=== PATIENT | male | born 1950 | race Caucasian/White ===

== ENCOUNTER 2024-01-05 20:40 | Inpatient (IN) | payer MEDICARE, BC ==
[~2024-01-05] VITALS: Ht 182.9 cm; Wt 105.7 kg
[2024-01-05] MEDS: LACOSAMIDE 100 MG/10 ML UDC PO STA (21:05)
[2024-01-05] MEDS ORDERED: LACOSAMIDE 50 MG TABLET ONE (21:06)
[2024-01-05] MEDS ORDERED: INSU200I4 SQ (21:19)
[2024-01-05] MEDS ORDERED: METH-806 PO (21:19)
[2024-01-05] MEDS ORDERED: CLOP75TA33 PO (21:19)
[2024-01-05] MEDS ORDERED: AMLO10TA59 PO (21:19)
[2024-01-05] MEDS ORDERED: ASPI-495 PO (21:19)
[2024-01-05] MEDS ORDERED: EMPA10TA PO (21:19)
[2024-01-05] MEDS ORDERED: [UNRECOGNIZED DRUG - CODE] PO (21:19)
[2024-01-05] MEDS ORDERED: PREG300C PO (21:19)
[2024-01-05] MEDS ORDERED: CLON1TAB12 PO (21:19)
[2024-01-05] MEDS ORDERED: FENO48TA6 PO (21:19)
[2024-01-05] MEDS ORDERED: ATOR40TA PO (21:19)
[2024-01-05] MEDS ORDERED: METO-356 PO (21:19)
[2024-01-05] MEDS ORDERED: SEMA0.25 SQ (21:19)
[2024-01-05] MEDS ORDERED: FOLI1TAB94 PO (21:19)
[2024-01-05] MEDS ORDERED: INSU100V (21:19)
[2024-01-05] MEDS ORDERED: DONE10TA44 PO (21:19)
[2024-01-05] MEDS ORDERED: LACO100T2 PO (21:19)
[2024-01-05 21:20] LABS: BASOPHILS # (AUTO) 0.1 K/UL (0.0-0.2); BASOPHILS % (AUTO) 0.6 % (0.0-2.0); EOSINOPHILS # (AUTO) 0.1 K/uL (0.0-0.7); EOSINOPHILS % (AUTO) 0.9 % (0.0-7.0); HEMATOCRIT 41.6 % (36.7-47.1); HEMOGLOBIN 13.8 g/dL (12.5-16.3); LYMPHOCYTES # (AUTO) 2.2 K/uL (0.8-4.8); LYMPHOCYTES % (AUTO) 25.9 % (20.5-51.5); MEAN CORPUSCULAR HGB CONC 33 g/dL (32.5-36.3); MEAN CORPUSCULAR VOLUME 90.4 fL (73.0-96.2); MONOCYTES # (AUTO) 0.7 K/uL (0.1-1.30); MONOCYTES % (AUTO) 8.3 % (0.0-11.0); NEUTROPHILS # (AUTO) 5.6 K/uL (1.8-8.9); NEUTROPHILS % (AUTO) 64.3 % (38.5-71.5); PLATELET COUNT (AUTO) 134 K/uL (152-348); RED CELL DISTRIBUTION WIDTH 14.4 % (12.1-16.2); WHITE BLOOD COUNT (AUTO) 8.6 K/uL (3.6-10.2)
[2024-01-05 21:21] LABS: DIFFERENTIAL COMMENT 1
[2024-01-05 21:22] LABS: *BILIRUBIN,URIN NEGATIVE (NEGATIVE); *BLOOD, URINE NEGATIVE (NEGATIVE); *CLARITY,URINE CLEAR (CLEAR); *COLOR,URINE YELLOW (YELLOW); *KETONES,URINE NEGATIVE (NEGATIVE); *PROTEIN,URINE NEGATIVE (NEGATIVE); *UROBILINOGEN,URINE 0.2 E.U./dl (NORMAL); LEUKOCYTE ESTERASE ,URINE NEGATIVE (NEGATIVE); NITRITE, URINE NEGATIVE (NEGATIVE); PH,URINE 5.5 (5.0-8.0); UGLUCOSE 3+ (NEGATIVE)
[2024-01-05 21:24] LABS: ALANINE AMINOTRANSFERASE 28 U/L (16-63); ALBUMIN 3.9 g/dL (3.4-5.0); ALKALINE PHOSPHATASE 104 U/L (50-136); ASPARTATE AMINOTRANSFERASE 23 U/L (15-37); BILIRUBIN,DIRECT 0.2 mg/dL (0.0-0.2); BILIRUBIN,TOTAL 0.7 mg/dL (0.2-1.0); CALCIUM 10.2 mg/dL (8.5-10.1); CARBON DIOXIDE 30 mmol/L (21-32); CHLORIDE 102 mmol/L (98-107); CREATININE 1.9 mg/dL (0.6-1.3); POTASSIUM 4.5 mmol/L (3.5-5.1); SODIUM SERUM 143 mmol/L (136-145); TOTAL PROTEIN, SERUM 8.1 g/dL (6.4-8.2); UREA NITROGEN, BLOOD 38 mg/dL (7-18)
[2024-01-05 21:27] LABS: ACETAMINOPHEN < 2.0 ug/mL (10-30)
[2024-01-05 21:31] LABS: GLUCOSE 154 mg/dL (74-106)
[2024-01-05 21:40] LABS: BACTERIA,URINE NONE SEEN /HPF (NONE SEEN); RBC,URINE NONE SEEN /HPF (0-3); SQUAMOUS EPITHELIAL CELL,UR FEW /HPF (NONE SEEN); WBC,URINE 0-3 /HPF (0-3)
[2024-01-05 21:42] LABS: ETHANOL < 3 MG/DL (0-10)
[2024-01-05 21:46] LABS: *AMPHETAMINE, URINE NEGATIVE (NEGATIVE); *BARBITURATE, URINE NEGATIVE (NEGATIVE); *BENZODIAZEPINE, URINE NEGATIVE (NEGATIVE); *CANNABINOID, URINE NEGATIVE (NEGATIVE); *COCCAINE, URINE NEGATIVE (NEGATIVE); *OPIATE, URINE POSITIVE (NEGATIVE); *PHENCYCLIDINE SCREEN,URINE NEGATIVE (NEGATIVE); FENTANYL, URINE NEGATIVE (NEGATIVE)
[2024-01-06] MEDS ORDERED: MAG HYDROX/AL HYDROX/SIMETH 30 ML LIQUID UDC PO PRN
[2024-01-06] MEDS ORDERED: LORAZEPAM 1 MG TABLET PO PRN
[2024-01-06] MEDS ORDERED: TEMAZEPAM 7.5 MG CAPSULE PO PRN ×2
[2024-01-06 00:13] VITALS: BP 164/69; TEMP 98.8; O2SAT 96
[2024-01-06 08:41] VITALS: BP 117/50; TEMP 98; O2SAT 96
[2024-01-06] MEDS ORDERED: INSU100I33 SQ (09:21)
[2024-01-06] MEDS: FLUOXETINE HCL 20 MG CAPSULE PO SCH (10:50)
[2024-01-06] MEDS ORDERED: DEXTROSE 50% 50 ML DISP.SYRIN IV PRN (12:00)
[2024-01-06] MEDS: LACOSAMIDE 50 MG TABLET PO SCH (13:12)
[2024-01-06] MEDS: CLOPIDOGREL 75 MG TABLET PO SCH (13:12)
[2024-01-06] MEDS: ASPIRIN EC 81 MG TABLET.DR PO SCH (13:12)
[2024-01-06] MEDS: DIVALPROEX 125 MG TABLET.DR PO SCH (13:12)
[2024-01-06 15:47] VITALS: BP 136/92; TEMP 98; O2SAT 96
[2024-01-06] MEDS: FENOFIBRATE NANOCRYSTALLIZED 48 MG TABLET PO SCH (16:47)
[2024-01-06] MEDS: BLOOD SUGAR DIAGNOSTIC 1 EACH STRIP VI SCH (16:55)
[2024-01-06] MEDS: INSULIN REGULAR, HUMAN 1000 UNIT/10 ML VIAL SQ PRN (16:58)
[2024-01-06 20:00] VITALS: BP 151/69; TEMP 98.5; O2SAT 94
[2024-01-06] MEDS: ATORVASTATIN 40 MG TABLET PO SCH (21:02)
[2024-01-07] MEDS: LEVOTHYROXINE SODIUM 150 MCG TABLET PO SCH (06:35)
[2024-01-07] MEDS: LORAZEPAM 1 MG TABLET PO PRN (06:35)
[2024-01-07 07:42] LABS: BASOPHILS % (AUTO) 0.8 % (0.0-2.0); EOSINOPHILS # (AUTO) 0.1 K/uL (0.0-0.7); EOSINOPHILS % (AUTO) 2.2 % (0.0-7.0); HEMATOCRIT 38.8 % (36.7-47.1); LYMPHOCYTES # (AUTO) 1.2 K/uL (0.8-4.8); LYMPHOCYTES % (AUTO) 20.2 % (20.5-51.5); MEAN CORPUSCULAR HEMOGLOBIN 30.2 uug (23.8-33.4); MEAN CORPUSCULAR HGB CONC 33 g/dL (32.5-36.3); MEAN CORPUSCULAR VOLUME 90.5 fL (73.0-96.2); MONOCYTES # (AUTO) 0.6 K/uL (0.1-1.30); MONOCYTES % (AUTO) 9.8 % (0.0-11.0); NEUTROPHILS # (AUTO) 3.9 K/uL (1.8-8.9); PLATELET COUNT (AUTO) 113 K/uL (152-348); RED BLOOD CELL COUNT(AUTO) 4.29 MIL/uL (4.06-5.63); RED CELL DISTRIBUTION WIDTH 14.9 % (12.1-16.2); WHITE BLOOD COUNT (AUTO) 5.8 K/uL (3.6-10.2)
[2024-01-07 07:56] LABS: DIFFERENTIAL COMMENT 1
[2024-01-07 07:57] VITALS: BP 116/56; TEMP 98; O2SAT 98
[2024-01-07 07:57] LABS: ALANINE AMINOTRANSFERASE 20 U/L (16-63); ALBUMIN 3.6 g/dL (3.4-5.0); ALKALINE PHOSPHATASE 101 U/L (50-136); ASPARTATE AMINOTRANSFERASE 18 U/L (15-37); BILIRUBIN,TOTAL 0.7 mg/dL (0.2-1.0); CARBON DIOXIDE 28 mmol/L (21-32); CHLORIDE 106 mmol/L (98-107); CREATINE KINASE, TOTAL 98 U/L (39-308); CREATININE 1.9 mg/dL (0.6-1.3); GLUCOSE 179 mg/dL (74-106); MAGNESIUM 2.1 mg/dL (1.8-2.4); PHOSPHOROUS 3.5 mg/dL (2.5-4.9); POTASSIUM 4.6 mmol/L (3.5-5.1); SODIUM SERUM 144 mmol/L (136-145); TOTAL PROTEIN, SERUM 7.5 g/dL (6.4-8.2); UREA NITROGEN, BLOOD 38 mg/dL (7-18)
[2024-01-07] MEDS: AMLODIPINE 10 MG TABLET PO SCH (08:18)
[2024-01-07] MEDS: EMPAGLIFLOZIN 10 MG TABLET PO SCH (08:22)
[2024-01-07] MEDS: FOLIC ACID 1 MG TABLET PO SCH (08:23)
[2024-01-07] MEDS: METOPROLOL SUCCINATE XL 25 MG TAB.SR.24H PO SCH (08:24)
[2024-01-07] MEDS ORDERED: Medication Not On Formulary EA (Empagliflozin (Jardiance) 10 MG) PO SCH (09:00)
[2024-01-07 15:12] VITALS: BP 128/55; TEMP 98.2; O2SAT 98
[2024-01-07 20:08] VITALS: BP 126/70; TEMP 98.2; O2SAT 95
[2024-01-07] MEDS: ACETAMINOPHEN 325 MG TABLET PO PRN (22:16)
[2024-01-08 08:00] VITALS: BP 126/64; TEMP 97.6; O2SAT 99
[2024-01-08 10:06] LABS: PTH, INTACT 21 pg/mL (15-65)
[2024-01-08 20:25] VITALS: BP 106/56; TEMP 97.9; O2SAT 95
[2024-01-08] MEDS: INSULIN REGULAR, HUMAN 300 UNITS/3 ML VIAL SQ PRN (20:55)
[2024-01-09 08:10] VITALS: BP 155/71; TEMP 98; O2SAT 98
[2024-01-09] MEDS: FLUOXETINE HCL 10 MG CAPSULE PO SCH (08:13)
[2024-01-09] MEDS ORDERED: FLUOXETINE HCL 20 MG CAPSULE PO SCH (09:00)
[2024-01-09 15:26] VITALS: BP 108/50; TEMP 98; O2SAT 96
[2024-01-09 20:25] VITALS: BP 123/60; TEMP 98.1; O2SAT 97
[2024-01-10] MEDS: FLUOXETINE HCL 20 MG CAPSULE PO SCH (08:03)
[2024-01-10 08:37] VITALS: BP 157/70; TEMP 98; O2SAT 98
[2024-01-10] MEDS ORDERED: FLUOXETINE HCL 10 MG CAPSULE PO SCH (09:00)
[2024-01-10 09:49] LABS: CARBON DIOXIDE 28 mmol/L (21-32); CHLORIDE 102 mmol/L (98-107); CREATININE 1.7 mg/dL (0.6-1.3); GLUCOSE 258 mg/dL (74-106); POTASSIUM 4.4 mmol/L (3.5-5.1); SODIUM SERUM 140 mmol/L (136-145); UREA NITROGEN, BLOOD 38 mg/dL (7-18)
[2024-01-10 10:16] LABS: CHOLESTEROL 131 mg/dL (<200); HDL CHOLESTEROL 40 mg/dL (40-60); TRIGLYCERIDES 221 MG/DL (30-150)
[2024-01-10 10:41] LABS: THYROID STIMULATING HORMONE 2.379 mIU/mL (0.358-3.740)
[2024-01-10 15:28] VITALS: BP 119/71; TEMP 98; O2SAT 96
[2024-01-10 16:06] LABS: A/G RATIO 0.9 (0.7-1.7); ALBUMIN 3.1 g/dL (2.9-4.4); ALPHA-1-GLOBULIN 0.3 g/dL (0.0-0.4); BETA GLOBULIN 1.3 g/dL (0.7-1.3); GLOBULIN, TOTAL 3.6 g/dL (2.2-3.9); M-SPIKE Not Observed g/dL (Not Observed); PROTEIN, TOTAL 6.7 g/dL (6.0-8.5)
[2024-01-10 20:00] VITALS: BP 124/64; TEMP 97.9; O2SAT 94
[2024-01-11 08:10] VITALS: BP 125/61; TEMP 98; O2SAT 99
[2024-01-11] MEDS: ARGININE/GLUTAMINE/CALCIUM BMB 1 EACH POWD.PACK PO SCH (09:58)
[2024-01-11 15:48] VITALS: BP 123/75; TEMP 98; O2SAT 99
[2024-01-11 20:00] VITALS: BP 121/62; TEMP 98; O2SAT 96
[2024-01-12 08:05] VITALS: BP 130/61; TEMP 98; O2SAT 98
[2024-01-12 15:28] VITALS: BP 126/56; TEMP 98; O2SAT 99
[2024-01-12 20:00] VITALS: BP 114/57; TEMP 98.8; O2SAT 97
[2024-01-13] MEDS: MAGNESIUM HYDROXIDE 30 ML LIQUID UDC PO PRN (06:43)
[2024-01-13 07:28] VITALS: BP 119/42; TEMP 98.1
[2024-01-13] MEDS: LIDOCAINE 5% PATCH TD SCH (16:30)
[2024-01-13 20:06] VITALS: BP 110/62; TEMP 97.7
[2024-01-14 07:42] VITALS: BP 130/57; TEMP 97.8; O2SAT 99
[2024-01-14 15:13] VITALS: BP 127/65; TEMP 97.9; O2SAT 95
[2024-01-14 20:00] VITALS: BP 117/60; TEMP 98.1; O2SAT 98
[2024-01-15 07:57] VITALS: BP 124/71; TEMP 98.1; O2SAT 96
[2024-01-15] MEDS: METHOCARBAMOL 500 MG TABLET PO PRN (08:48)
[2024-01-15 16:00] VITALS: BP 105/53; TEMP 98.6; O2SAT 96
[2024-01-15 20:00] VITALS: BP 137/54; TEMP 98; O2SAT 99
[2024-01-16 07:48] VITALS: BP 102/45; TEMP 98.6; O2SAT 98
[2024-01-16 15:47] VITALS: BP 117/48; TEMP 98.5; O2SAT 95
[2024-01-16 20:07] VITALS: BP 130/58; TEMP 98.3; O2SAT 96
[2024-01-17 07:50] VITALS: BP 131/66; TEMP 98.4; O2SAT 98
[2024-01-17 15:27] VITALS: BP 147/70; TEMP 98.2; O2SAT 100
[2024-01-17 20:23] VITALS: BP 155/65; TEMP 97.7; O2SAT 100
[2024-01-18 09:19] VITALS: BP 138/71; TEMP 98
[2024-01-18 20:29] VITALS: BP 124/60; TEMP 98.1; O2SAT 98
[2024-01-19 07:40] VITALS: BP 125/68; TEMP 97.7; O2SAT 98
[2024-01-19 09:18] VITALS: BP 125/68
== END 2024-01-19 13:15 | DRG 885 ==
LOC: ER 20:40 → GPS 23:49
PROVIDERS: ADMIT Psychiatry & Neurology Psychosomatic Medicine; ATTEND Nurse Practitioner Acute Care
DX: F32.3 Major depressive disorder, single episode, severe with psychotic features (principal); N18.30 Chronic kidney disease, stage 3 unspecified; N17.0 Acute kidney failure with tubular necrosis; I69.351 Hemiplegia and hemiparesis following cerebral infarction affecting right dominant side; G93.40 Encephalopathy, unspecified; D68.59 Other primary thrombophilia; T43.222D Poisoning by selective serotonin reuptake inhibitors, intentional self-harm, subsequent encounter; G89.4 Chronic pain syndrome; E66.01 Morbid (severe) obesity due to excess calories; E83.52 Hypercalcemia; E86.0 Dehydration; E11.22 Type 2 diabetes mellitus with diabetic chronic kidney disease; G40.909 Epilepsy, unspecified, not intractable, without status epilepticus; M89.8X9 Other specified disorders of bone, unspecified site; E11.51 Type 2 diabetes mellitus with diabetic peripheral angiopathy without gangrene; E78.5 Hyperlipidemia, unspecified; I12.9 Hypertensive chronic kidney disease with stage 1 through stage 4 chronic kidney disease, or unspecified chronic kidney disease; Z59.89 Other problems related to housing and economic circumstances; Z88.1 Allergy status to other antibiotic agents; Z91.041 Radiographic dye allergy status; Z91.040 Latex allergy status; Z91.09 Other allergy status, other than to drugs and biological substances; Z68.31 Body mass index [BMI] 31.0-31.9, adult; Z79.84 Long term (current) use of oral hypoglycemic drugs; Z79.4 Long term (current) use of insulin; Z79.899 Other long term (current) drug therapy; Z79.82 Long term (current) use of aspirin
CPT/HCPCS: 36415; 76770; 83735; 83970; 84100; 84155; 84165; 84443; 84481; 85025; 93005; A6209; G0480; J1815